=== PATIENT | female | born 1955 | race Caucasian/White ===

== ENCOUNTER 2019-02-02 21:15 | Emergency (ER) | payer OTHER, SELFPAY ==
[2019-02-02 21:17] VITALS: BP 158/91; PULSE 90; RESP 18; TEMP 36.7; O2SAT 95; BMI 28.5
--- NOTE | 2019-02-02 21:30 | RAD_ITS ---
STUDY: X-RAY - RIGHT KNEE REASON FOR EXAM: Female, 63 years old. trauma TECHNIQUE: 2 view(s) of the knee. COMPARISON: None. FINDINGS: Normal visualized distal femur. Normal visualized proximal tibia and fibula. Normal proximal tibiofibular articulation. Normal medial femorotibial compartment. Normal lateral femorotibial compartment. Normal patellofemoral articulation. Prepatellar soft tissue swelling RAD/Knee 1 or 2 Views IMPRESSION: Soft tissue swelling without acute fracture Electronically Signed: Jozef Lopez MD at 21:45 EDT , Service support ,
--- NOTE | 2019-02-02 21:32 | ED.VIS.GEN ---
History of Present Illness Chief Complaint: Laceration Informant: Patient Onset: Today Context: Sudden Onset Timing: Continuous Current Severity: Moderate Maximum Severity: Moderate Narrative: The patient presents to the emergency department laceration to her right knee. Patient was in her normal state of health. She was at a friend's house. She went to walk up the outdoor stairs. She tripped and fell forward. She struck her right knee against the edge of a brick staircase. She suffered immediate laceration. She has still been able to bear weight. She did not strike her head. She is unsure of her last tetanus. Patient is otherwise been in her normal state of health. Prior similar symptoms: No Recent Illness/Hospitalization: No Past Medical History - Allergies and Home Meds Allergies/Adverse Reactions: Allergies hydromorphone [From Dilaudid] Adverse Reaction (Verified 02/02/19 21:20) Vomiting Primary Care Physician: NOT,DEFINED [NON-STAFF] - 10-14 Days suture removal Prior records reviewed: Yes Past Medical History: None Review of Systems General: Denies: Chills, Fever, Sweats Eyes: Denies: Visual changes - bilaterally, Diplopia ENT: Denies: Rhinorrhea, Sore throat Cardiovascular: Denies: Chest pain, Palpitations Respiratory: Denies: Dyspnea, Cough, Dyspnea on exertion Gastrointestinal: Denies: Abdominal pain, Nausea, Vomiting, Diarrhea, Melena, Hematochezia Genitourinary: Denies: Dysuria, Hematuria, Frequency Musculoskeletal: Denies: Back pain, Extremity Pain Skin: Denies: Rash, Wounds Neurological: Denies: Headache, Weakness, Numbness Physical Exam Vital Signs/Narrative: Vital Signs Temp Pulse Resp BP Pulse Ox 02/02/19 21:17 98.0 F 90 18 158/91 H 95 Inital Vital Signs reviewed: Yes General: Well nourished, Well developed, No Acute Distress Head: Normocephalic, Atraumatic Eyes: Perrl, EOMI ENT: Moist mucous membranes, No rhinorrhea Neck: Supple, Nontender Cardiovascular: Regular rate, Regular rhythm, No murmurs Respiratory: No distress, CTA bilaterally, Chest nontender Abdomen: Soft, Nontender, Nondistended, Normal bowel sounds Back: Nontender, Normal Inspection Extremities: No edema, Tenderness, - - Patient is a 14 cm full-thickness laceration across the right knee. It is horizontally oriented. She is able to extend. There is no gross laxity of the knee. Pulses are normal. There is minimal active bleeding. Skin: Normal color, No rash Neurological: Alert, Oriented x3, Cranial nerves II-XII grossly intact, Normal Strength, Normal Sensation Psychological: Normal affect, Normal Mood Diagnostic/Tx/Re-eval Clinical Impression(s) from Imaging Studies Knee X-Ray 02/02/19 21:30 IMPRESSION: Soft tissue swelling without acute fracture Electronically Signed: Jozef Lopez MD at 21:45 EDT , Service support , - Medical Decision Making The patient presents with a 14 cm laceration across the knee. Her extension is preserved. I did obtain plain films and there is no evidence of fracture. The wound was anesthetized and aggressively irrigated. It was explored. The laceration does not go through to the joint. There is no evidence of tendinous or muscular injury. The fascia was intact. The wound was closed in a layered fashion. 5 absorbable 4-0 sutures were used to reapproximate the skin. The skin was then closed with 18 vertical mattress as this was a high tension area. Bacitracin dressing was applied. I did behavioral health counselor patient on wound care, appropriate follow-up, and reasons to return. The patient is comfortable with this plan of care. She will be discharged home. Impression 1. 14 cm right knee laceration with repair Procedures - Lacerations No standard instances Length: 5.51 in Depth: Sub Q Shape: Linear Prep: Sterile Conditions, Shure-Clens Laceration repair: Irrigated, Lidocaine with epi, Subcutaneous sutures, Wound explored Irrigated (ml): 500 Number of Sutures/Nicolle: 23 Suture Information: Vertical, Mattress, 4-0 ED Disposition - Plan for ED Patient: Instructions: LACERATION, All Referrals: NOT,DEFINED [NON-STAFF] - 10-14 Days suture removal
[2019-02-02] MEDS: Bupivacaine Mpf 0.5% 30 ML VIAL INFILT (21:48)
[2019-02-02] MEDS: Diphth,Pertuss(Acell),Tet Vac 0.5 ML Vial IM (21:48)
[2019-02-02 22:30] VITALS: PULSE 75; RESP 16; O2SAT 98
== END 2019-02-02 22:35 | disposition home or self-care (01) ==
LOC: ED 21:46
PROVIDERS: Emergency Provider Emergency Medicine
DX: S81.011A Laceration without foreign body, right knee, initial encounter (principal); W01.118A Fall on same level from slipping, tripping and stumbling with subsequent striking against other sharp object, initial encounter; Y93.01 Activity, walking, marching and hiking; Y92.008 Other place in unspecified non-institutional (private) residence as the place of occurrence of the external cause; Y99.8 Other external cause status
CPT/HCPCS: 12005; 73560; 90471; 90715; 99285